=== PATIENT | female | born 1940 | race Caucasian/White ===

== ENCOUNTER → 2021-02-09 11:00 | Outpatient (CLI) | payer MEDICARE, OTHER, SELFPAY ==
[2021-02-09 19:18] LABS: Add Manual Diff / Slide Review NO; Basophils Absolute Auto 0 /uL (0-100); Basophils Percent Auto 0.7 % (0-2); Eosinophils Absolute Auto 100 /uL (0-450); Eosinophils Percent Auto 1.9 % (2-4); Hematocrit 34.6 % (36-46); Hemoglobin 11.7 g/dL (12.0-16.0); Lymphocytes Absolute Auto 1300 /uL (1100-4500); Mean Corpuscular HGB Conc 33.6 % (30-36); Mean Corpuscular Hemoglobin 34.6 PG (26-34); Mean Corpuscular Volume 102.7 fL (80-100); Monocytes Absolute Auto 400 /uL (0-900); Monocytes Percent Auto 8.9 % (3-14); Neutrophils Absolute Auto 2600 /uL (1500-7000); Neutrophils Percent Auto 58.5 % (50-75); Platelet Count 212 X10^3/uL (150-400); Red Blood Cell Count 3.37 X10^6/uL (4.0-5.2); Red Cell Distribution Width 12.7 % (11.6-14.8); White Blood Cell Count 4.4 X10^3/uL (4.5-11.0)
[2021-02-09 19:21] LABS: Alanine Aminotransferase 18 IU/L (<35); Albumin 3.8 g/dL (3.5-5.0); Albumin Globulin Ratio 1.1 (1.0-2.8); Alkaline Phosphatase 68 U/L (38-126); Aspartate Aminotransferase 28 IU/L (14-36); BUN Creatinine Ratio 29.9 (6-22); Bilirubin Total 0.3 mg/dL (0.2-1.3); Blood Urea Nitrogen 23 mg/dL (7-17); Calcium 10.1 mg/dL (8.4-10.2); Carbon Dioxide 29 mmol/L (22-32); Chloride 104 mmol/L (98-107); Estimated Glomerular Filt Rate > 60.0 mL/min (>60); Globulin 3.5 g/dL (1.7-4.1); Glucose 92 mg/dL (80-110); HEMOLYSIS < 15 (0-50); Lactate Dehydrogenase 356 U/L (313-618); Potassium 4.7 mmol/L (3.4-5.1); Sodium 139 mmol/L (137-145); Total Protein 7.3 g/dL (6.3-8.2)
[2021-02-11 15:08] LABS: Free Kappa Lt Chains, Serum 48.1 mg/L (3.3-19.4); Free Lambda Lt Chains,Serum 10.7 mg/L (5.7-26.3)
[2021-02-12 11:36] LABS: Beta-2-Microglobulin 2.2 mg/L (0.6-2.4)
[2021-02-12 16:12] LABS: Albumin 3.6 g/dL (2.9-4.4); Alpha-1-Globulin 0.2 g/dL (0.0-0.4); Alpha-2-Globulin 0.7 g/dL (0.4-1.0); Gamma Globulin 1.9 g/dL (0.4-1.8); Globulin Total 3.6 g/dL (2.2-3.9); Immunoglobulin A, Serum 71 mg/dL (64-422); Immunoglobulin G,Serum 570 mg/dL (586-1602); Immunoglobulin M, Serum 2319 mg/dL (26-217); Protein, Total 7.2 g/dL (6.0-8.5)
== END ==
PROVIDERS: PCP Physician Assistant; Visit Provider Internal Medicine Hematology & Oncology
DX: C83.00 Small cell B-cell lymphoma, unspecified site (principal); R70.0 Elevated erythrocyte sedimentation rate; C88.0 Waldenstrom macroglobulinemia
CPT/HCPCS: 80053; 82232; 82784; 83615; 83883; 84155; 84165; 85025; 86334

== ENCOUNTER → 2021-04-21 10:37 | Outpatient (CLI) | payer MEDICARE, OTHER, SELFPAY | PROVIDERS: PCP Physician Assistant; Visit Provider Physician Assistant | DX: R30.0 Dysuria (principal) | CPT/HCPCS: 87077; 87086; 87186 ==

== ENCOUNTER → 2021-05-26 13:36 | Outpatient (CLI) | payer MEDICARE, OTHER, SELFPAY ==
[2021-05-26 18:44] LABS: Add Manual Diff / Slide Review NO; Basophils Absolute Auto 0 /uL (0-100); Basophils Percent Auto 0.4 % (0-2); Eosinophils Absolute Auto 100 /uL (0-450); Eosinophils Percent Auto 2.8 % (2-4); Hematocrit 33.3 % (36-46); Hemoglobin 11.5 g/dL (12.0-16.0); Lymphocytes Absolute Auto 1500 /uL (1100-4500); Lymphocytes Percent Auto 34.1 % (25-40); Mean Corpuscular HGB Conc 34.6 % (30-36); Monocytes Absolute Auto 400 /uL (0-900); Monocytes Percent Auto 9.5 % (3-14); Neutrophils Absolute Auto 2400 /uL (1500-7000); Neutrophils Percent Auto 53.2 % (50-75); Platelet Count 210 X10^3/uL (150-400); Red Blood Cell Count 3.29 X10^6/uL (4.0-5.2); Red Cell Distribution Width 12.4 % (11.6-14.8); White Blood Cell Count 4.5 X10^3/uL (4.5-11.0)
[2021-05-26 18:51] LABS: Alanine Aminotransferase 17 IU/L (<35); Albumin 3.9 g/dL (3.5-5.0); Albumin Globulin Ratio 1.1 (1.0-2.8); Alkaline Phosphatase 66 U/L (38-126); Aspartate Aminotransferase 27 IU/L (14-36); BUN Creatinine Ratio 32.1 (6-22); Bilirubin Total 0.3 mg/dL (0.2-1.3); Blood Urea Nitrogen 26 mg/dL (7-17); Carbon Dioxide 27 mmol/L (22-32); Chloride 104 mmol/L (98-107); Estimated Glomerular Filt Rate > 60.0 mL/min (>60); Globulin 3.4 g/dL (1.7-4.1); Glucose 126 mg/dL (80-110); HEMOLYSIS < 15 (0-50); Lactate Dehydrogenase 352 U/L (313-618); Potassium 4.7 mmol/L (3.4-5.1); Sodium 139 mmol/L (137-145); Total Protein 7.3 g/dL (6.3-8.2)
[2021-05-27 14:16] LABS: Free Kappa Lt Chains, Serum 41.2 mg/L (3.3-19.4); Free Lambda Lt Chains,Serum 12.8 mg/L (5.7-26.3)
[2021-05-28 11:45] LABS: Albumin 3.5 g/dL (2.9-4.4); Alpha-1-Globulin 0.3 g/dL (0.0-0.4); Alpha-2-Globulin 0.8 g/dL (0.4-1.0); Gamma Globulin 1.9 g/dL (0.4-1.8); Globulin Total 3.9 g/dL (2.2-3.9); Immunoglobulin A, Serum 72 mg/dL (64-422); Immunoglobulin G,Serum 553 mg/dL (586-1602); Immunoglobulin M, Serum 2207 mg/dL (26-217); Protein, Total 7.4 g/dL (6.0-8.5)
[2021-05-28 16:16] LABS: Beta-2-Microglobulin 1.9 mg/L (0.6-2.4)
== END ==
PROVIDERS: PCP Physician Assistant; Referring Provider Internal Medicine Hematology & Oncology; Visit Provider Internal Medicine Hematology & Oncology
DX: C83.00 Small cell B-cell lymphoma, unspecified site (principal)
CPT/HCPCS: 80053; 82232; 82784; 83615; 83883; 84155; 84165; 85025; 86334

== ENCOUNTER → 2021-07-01 11:29 | Outpatient (CLI) | payer MEDICARE, OTHER, SELFPAY | PROVIDERS: PCP Physician Assistant; Referring Provider Nurse Practitioner Family; Visit Provider Nurse Practitioner Family | DX: N89.8 Other specified noninflammatory disorders of vagina (principal); N39.0 Urinary tract infection, site not specified | CPT/HCPCS: 87077; 87086; 87186; 87210 ==

== ENCOUNTER → 2021-07-06 10:23 | Outpatient (CLI) | payer MEDICARE, OTHER, SELFPAY ==
[2021-07-06 19:57] LABS: Alanine Aminotransferase 19 IU/L (<35); Albumin 3.9 g/dL (3.5-5.0); Albumin Globulin Ratio 1.1 (1.0-2.8); Alkaline Phosphatase 69 U/L (38-126); Aspartate Aminotransferase 28 IU/L (14-36); BUN Creatinine Ratio 32.2 (6-22); Bilirubin Total 0.3 mg/dL (0.2-1.3); Blood Urea Nitrogen 28 mg/dL (7-17); Calcium 10.4 mg/dL (8.4-10.2); Carbon Dioxide 31 mmol/L (22-32); Chloride 102 mmol/L (98-107); Estimated Glomerular Filt Rate > 60.0 mL/min (>60); Globulin 3.5 g/dL (1.7-4.1); Glucose 102 mg/dL (80-110); HEMOLYSIS < 15 (0-50); Potassium 4.7 mmol/L (3.4-5.1); Sodium 138 mmol/L (137-145); Total Protein 7.4 g/dL (6.3-8.2)
== END ==
PROVIDERS: PCP Physician Assistant; Visit Provider Physician Assistant
DX: T50.905A Adverse effect of unspecified drugs, medicaments and biological substances, initial encounter (principal); L29.8 Other pruritus; Z79.899 Other long term (current) drug therapy; N89.8 Other specified noninflammatory disorders of vagina
CPT/HCPCS: 80053; 87801

== ENCOUNTER → 2021-11-19 13:45 | Outpatient (CLI) | payer MEDICARE, OTHER, SELFPAY ==
[2021-11-19 19:59] LABS: Add Manual Diff / Slide Review NO; Basophils Absolute Auto 0 /uL (0-100); Basophils Percent Auto 0.4 % (0-2); Eosinophils Absolute Auto 100 /uL (0-450); Eosinophils Percent Auto 3.4 % (2-4); Hematocrit 34.2 % (36-46); Lymphocytes Absolute Auto 1400 /uL (1100-4500); Lymphocytes Percent Auto 30.9 % (25-40); Mean Corpuscular HGB Conc 35.1 % (30-36); Mean Corpuscular Hemoglobin 35.6 PG (26-34); Mean Corpuscular Volume 101.2 fL (80-100); Monocytes Absolute Auto 300 /uL (0-900); Monocytes Percent Auto 7.4 % (3-14); Neutrophils Absolute Auto 2600 /uL (1500-7000); Neutrophils Percent Auto 57.9 % (50-75); Platelet Count 216 X10^3/uL (150-400); Red Blood Cell Count 3.38 X10^6/uL (4.0-5.2); Red Cell Distribution Width 12.3 % (11.6-14.8); White Blood Cell Count 4.4 X10^3/uL (4.5-11.0)
[2021-11-19 20:00] LABS: Alanine Aminotransferase 18 IU/L (<35); Albumin 3.9 g/dL (3.5-5.0); Albumin Globulin Ratio 1.1 (1.0-2.8); Alkaline Phosphatase 75 U/L (38-126); Aspartate Aminotransferase 29 IU/L (14-36); BUN Creatinine Ratio 30.4 (6-22); Bilirubin Total 0.4 mg/dL (0.2-1.3); Blood Urea Nitrogen 28 mg/dL (7-17); Calcium 9.5 mg/dL (8.4-10.2); Carbon Dioxide 28 mmol/L (22-32); Chloride 103 mmol/L (98-107); Estimated Glomerular Filt Rate > 60 mL/min (>60); Globulin 3.5 g/dL (1.7-4.1); Glucose 154 mg/dL (80-110); HEMOLYSIS < 15 (0-50); Potassium 4.4 mmol/L (3.4-5.1); Sodium 139 mmol/L (137-145); Total Protein 7.4 g/dL (6.3-8.2)
[2021-11-19 20:08] LABS: Lactate Dehydrogenase 369 U/L (313-618)
[2021-11-21 14:43] LABS: Free Kappa Lt Chains, Serum 45.1 mg/L (3.3-19.4); Free Lambda Lt Chains,Serum 11.2 mg/L (5.7-26.3)
[2021-11-25 13:24] LABS: Albumin 3.4 g/dL (2.9-4.4); Alpha-1-Globulin 0.3 g/dL (0.0-0.4); Alpha-2-Globulin 0.8 g/dL (0.4-1.0); Gamma Globulin 1.8 g/dL (0.4-1.8); Globulin Total 3.7 g/dL (2.2-3.9); Immunoglobulin A, Serum 71 mg/dL (64-422); Immunoglobulin G,Serum 544 mg/dL (586-1602); Immunoglobulin M, Serum 2416 mg/dL (26-217); Protein, Total 7.1 g/dL (6.0-8.5)
[2021-11-26 05:02] LABS: Beta-2-Microglobulin 2.3 mg/L (0.6-2.4)
== END ==
PROVIDERS: PCP Physician Assistant; Visit Provider Internal Medicine Hematology & Oncology
DX: R70.0 Elevated erythrocyte sedimentation rate (principal); C83.00 Small cell B-cell lymphoma, unspecified site; D47.2 Monoclonal gammopathy
CPT/HCPCS: 80053; 82232; 82784; 83615; 83883; 84155; 84165; 85025; 86334

== ENCOUNTER → 2022-09-21 11:34 | Outpatient (CLI) | payer MEDICARE, OTHER, SELFPAY ==
[2022-09-21 19:30] LABS: Add Manual Diff / Slide Review NO; Basophils Absolute Auto 0 /uL (0-100); Basophils Percent Auto 0.5 % (0-2); Eosinophils Absolute Auto 100 /uL (0-450); Eosinophils Percent Auto 2.2 % (2-4); Hematocrit 33.8 % (36-46); Hemoglobin 11.7 g/dL (12.0-16.0); Lymphocytes Absolute Auto 1400 /uL (1100-4500); Lymphocytes Percent Auto 27.7 % (25-40); Mean Corpuscular HGB Conc 34.5 % (30-36); Mean Corpuscular Volume 101.3 fL (80-100); Monocytes Absolute Auto 400 /uL (0-900); Monocytes Percent Auto 8.5 % (3-14); Neutrophils Absolute Auto 3100 /uL (1500-7000); Neutrophils Percent Auto 61.1 % (50-75); Platelet Count 213 X10^3/uL (150-400); Red Blood Cell Count 3.34 X10^6/uL (4.0-5.2); Red Cell Distribution Width 12.8 % (11.6-14.8)
[2022-09-21 19:50] LABS: Alanine Aminotransferase 22 IU/L (<35); Albumin 3.8 g/dL (3.5-5.0); Alkaline Phosphatase 80 U/L (38-126); Aspartate Aminotransferase 28 IU/L (14-36); Bilirubin Total 0.4 mg/dL (0.2-1.3); Blood Urea Nitrogen 30 mg/dL (7-17); Carbon Dioxide 34 mmol/L (22-32); Chloride 99 mmol/L (98-107); Estimated Glomerular Filt Rate 57 mL/min (>60); Globulin 3.8 g/dL (1.7-4.1); Glucose 94 mg/dL (80-110); HEMOLYSIS < 15 (0-50); Potassium 4.8 mmol/L (3.4-5.1); Sodium 139 mmol/L (137-145); Total Protein 7.6 g/dL (6.3-8.2)
[2022-09-21 19:51] LABS: NT-proBNP (BNP-Adult 18+) 202 pg/mL (<450)
== END ==
PROVIDERS: PCP Physician Assistant; Visit Provider Physician Assistant
DX: R05.3 Chronic cough (principal); R06.2 Wheezing; R05.9 Cough, unspecified; R60.0 Localized edema
CPT/HCPCS: 80053; 83880; 85025

== ENCOUNTER → 2022-09-28 14:03 | Outpatient (CLI) | payer MEDICARE, OTHER, SELFPAY ==
[2022-09-28 19:39] LABS: Add Manual Diff / Slide Review NO; Basophils Absolute Auto 0 /uL (0-100); Basophils Percent Auto 0.4 % (0-2); Eosinophils Absolute Auto 100 /uL (0-450); Eosinophils Percent Auto 2.5 % (2-4); Hematocrit 34.1 % (36-46); Hemoglobin 11.6 g/dL (12.0-16.0); Lymphocytes Absolute Auto 1600 /uL (1100-4500); Lymphocytes Percent Auto 34.6 % (25-40); Mean Corpuscular HGB Conc 34.2 % (30-36); Mean Corpuscular Hemoglobin 35.1 PG (26-34); Mean Corpuscular Volume 102.6 fL (80-100); Monocytes Absolute Auto 400 /uL (0-900); Monocytes Percent Auto 9.3 % (3-14); Neutrophils Absolute Auto 2500 /uL (1500-7000); Neutrophils Percent Auto 53.2 % (50-75); Platelet Count 220 X10^3/uL (150-400); Red Blood Cell Count 3.32 X10^6/uL (4.0-5.2); Red Cell Distribution Width 12.9 % (11.6-14.8); White Blood Cell Count 4.8 X10^3/uL (4.5-11.0)
[2022-09-28 20:04] LABS: Alanine Aminotransferase 20 IU/L (<35); Albumin 3.8 g/dL (3.5-5.0); Alkaline Phosphatase 77 U/L (38-126); Aspartate Aminotransferase 27 IU/L (14-36); BUN Creatinine Ratio 24.6 (6-22); Bilirubin Total 0.2 mg/dL (0.2-1.3); Blood Urea Nitrogen 28 mg/dL (7-17); Calcium 9.9 mg/dL (8.4-10.2); Carbon Dioxide 31 mmol/L (22-32); Chloride 101 mmol/L (98-107); Estimated Glomerular Filt Rate 48 mL/min (>60); Globulin 3.8 g/dL (1.7-4.1); Glucose 94 mg/dL (80-110); HEMOLYSIS < 15 (0-50); Lactate Dehydrogenase 154 U/L (120-246); Potassium 4.8 mmol/L (3.4-5.1); Sodium 140 mmol/L (137-145); Total Protein 7.6 g/dL (6.3-8.2)
[2022-10-01 14:36] LABS: Free Kappa Lt Chains, Serum 64.5 mg/L (3.3-19.4)
[2022-10-02 12:28] LABS: Beta-2-Microglobulin 2.3 mg/L (0.6-2.4)
[2022-10-04 14:07] LABS: Albumin 3.4 g/dL (2.9-4.4); Alpha-1-Globulin 0.2 g/dL (0.0-0.4); Alpha-2-Globulin 0.8 g/dL (0.4-1.0); Gamma Globulin 2.1 g/dL (0.4-1.8); Protein, Total 7.4 g/dL (6.0-8.5)
== END ==
PROVIDERS: PCP Physician Assistant; Visit Provider Internal Medicine Hematology & Oncology
DX: C83.00 Small cell B-cell lymphoma, unspecified site (principal); D47.2 Monoclonal gammopathy
CPT/HCPCS: 80053; 82232; 83615; 83883; 84155; 84165; 85025

== ENCOUNTER → 2022-09-30 14:59 | Outpatient (CLI) | payer MEDICARE, OTHER, SELFPAY | PROVIDERS: PCP Physician Assistant; Visit Provider Family Medicine | DX: N23 Unspecified renal colic (principal) | CPT/HCPCS: 87077; 87086; 87186 ==

== ENCOUNTER → 2022-10-06 11:13 | Outpatient (CLI) | payer MEDICARE, OTHER, SELFPAY ==
--- NOTE | 2022-10-06 11:15 | DI.CT.S_ITS ---
PROCEDURE: CT CHEST W CON INDICATIONS: worsening cough x 1 year. abn CXR TECHNIQUE: After the administration of intravenous contrast, 5 mm thick sections acquired from the pulmonary apices to the posterior costophrenic angles. 1 mm axial lung, 5 mm thick coronal and sagittal reformats and 7 mm axial MIP were acquired. For radiation dose reduction, the following was used: automated exposure control, adjustment of mA and/or kV according to patient size. COMPARISON: None. FINDINGS: Image quality: Excellent. Lungs and pleura: Upper lobe predominant tree-in-bud nodules with associated bronchiectasis. Atelectasis and bronchiectasis in the lingula. Mediastinum: Heart size is enlarged. No pericardial effusion. No mediastinal or hilar adenopathy by size criteria. Thoracic aorta and central pulmonary arteries are normal in size. Esophagus is normal in caliber. No hiatal hernia. Trace pericardial effusions. Borderline dilation of the pulmonary artery. Bones and chest wall: No suspicious bony lesions. No vertebral body compression fractures. No axillary or supraclavicular adenopathy by size criteria. Thyroid gland is unremarkable . Abdomen: Visualized upper abdominal solid organs appear normal. Upper abdominal bowel loops are normal in caliber. IMPRESSION: Upper lobe predominant tree-in-bud nodules with associated bronchiectasis, and atelectasis and bronchiectasis in the lingula. 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 Consider 12 month follow-up for re-evaluation of small pulmonary nodules. Borderline dilation of the main pulmonary artery, which may suggest pulmonary hypertension. Dictated by: Mark Foster M.D. on 10/06/2022 at 13:30 Approved by: Mark Foster M.D. on 10/06/2022 at 13:35
== END ==
PROVIDERS: PCP Physician Assistant; Referring Provider Physician Assistant; Visit Provider Physician Assistant
DX: J98.11 Atelectasis (principal); R91.8 Other nonspecific abnormal finding of lung field; J47.9 Bronchiectasis, uncomplicated; C83.00 Small cell B-cell lymphoma, unspecified site; R05.9 Cough, unspecified; R06.00 Dyspnea, unspecified; R93.89 Abnormal findings on diagnostic imaging of other specified body structures
CPT/HCPCS: 71260; Q9967

== ENCOUNTER → 2022-10-08 10:03 | Outpatient (CLI) | payer MEDICARE, OTHER, SELFPAY | PROVIDERS: PCP Physician Assistant; Visit Provider Family Medicine | DX: N39.0 Urinary tract infection, site not specified (principal); Z88.9 Allergy status to unspecified drugs, medicaments and biological substances | CPT/HCPCS: 87077; 87086; 87186 ==

== ENCOUNTER → 2022-10-14 08:54 | Outpatient (CLI) | payer MEDICARE, OTHER, SELFPAY | PROVIDERS: PCP Physician Assistant; Visit Provider Physician Assistant Medical | DX: N39.0 Urinary tract infection, site not specified (principal) | CPT/HCPCS: 87077; 87086; 87186 ==

== ENCOUNTER → 2022-10-25 13:54 | Outpatient (CLI) | payer MEDICARE, OTHER, SELFPAY ==
[2022-10-28 15:51] LABS: Immunoglobulin A, Serum 71 mg/dL (64-422); Immunoglobulin G,Serum 529 mg/dL (586-1602); Immunoglobulin M, Serum 2623 mg/dL (26-217)
== END ==
PROVIDERS: PCP Physician Assistant; Visit Provider Internal Medicine Hematology & Oncology
DX: C83.00 Small cell B-cell lymphoma, unspecified site (principal); D47.2 Monoclonal gammopathy
CPT/HCPCS: 82784; 84155; 86334

== ENCOUNTER → 2022-11-25 09:10 | Outpatient (CLI) | payer MEDICARE, OTHER, SELFPAY ==
--- NOTE | 2022-12-01 11:39 | PM.PFT.1 ---
Pulmonary Function Test Referral & Results Date Patient Seen: 11/25/22 Results: The spirometry demonstrates an FVC of 2.25 L which is 62% of predicted. The FEV1 was measured at 1.61 L which is 59% of predicted. The FEV1/FVC ratio was 72 which is 98% of predicted. Following the administration of bronchodilator there was a 12% improvement in FEV1 and a 59% improvement in FEF 25-75%. Lung volumes show an SVC of 2.49 L which is 72% of predicted. The diffusing capacity was measured at 16.22 which is 46% of predicted. No hemoglobin value was provided, so no correction for potential anemia could be made, if appropriate. The maximum voluntary ventilation was reduced Interpretation: This study demonstrates moderate obstructive lung disease based on reduction FEV1 although FEV1/FVC ratio is preserved there is evidence of benefit following bronchodilator administration particularly small airway flow as noted above There is a [id number]-[id number] reduction in lung volumes suggesting the presence of myso-qn-[id number] restrictive lung disease which may explain some of the abnormality in the FEV1 above There is a moderate to moderately severe reduction diffusing capacity suggesting the presence of disease at the capillary alveolar level Clinical correlation suggested
== END ==
PROVIDERS: PCP Physician Assistant; Referring Provider Specialist; Visit Provider Specialist
DX: R05.3 Chronic cough (principal); J98.8 Other specified respiratory disorders
CPT/HCPCS: 94060; 94726; 94729

== ENCOUNTER → 2023-02-09 10:16 | Outpatient (CLI) | payer MEDICARE, OTHER, SELFPAY | PROVIDERS: PCP Physician Assistant; Visit Provider Family Medicine | DX: N39.0 Urinary tract infection, site not specified (principal) | CPT/HCPCS: 87077; 87086; 87186 ==

== ENCOUNTER → 2023-03-01 12:41 | Outpatient (CLI) | payer MEDICARE, OTHER, SELFPAY | PROVIDERS: PCP Physician Assistant; Visit Provider Nurse Practitioner Adult Health | DX: N39.0 Urinary tract infection, site not specified (principal); L29.3 Anogenital pruritus, unspecified; R35.0 Frequency of micturition; R39.89 Other symptoms and signs involving the genitourinary system | CPT/HCPCS: 87077; 87086; 87186 ==

== ENCOUNTER → 2023-05-23 14:11 | Outpatient (CLI) | payer MEDICARE, OTHER, SELFPAY | PROVIDERS: PCP Physician Assistant; Visit Provider Physician Assistant | DX: N39.0 Urinary tract infection, site not specified (principal) | CPT/HCPCS: 87077; 87086; 87186 ==

== ENCOUNTER → 2023-06-07 14:22 | Outpatient (CLI) | payer MEDICARE, OTHER, SELFPAY | PROVIDERS: PCP Physician Assistant; Visit Provider Physician Assistant | DX: N39.0 Urinary tract infection, site not specified (principal) | CPT/HCPCS: 87077; 87086; 87186 ==

== ENCOUNTER → 2023-06-14 15:14 | Outpatient (CLI) | payer MEDICARE, OTHER, SELFPAY ==
[2023-06-14 20:15] LABS: Appearance Urine UA SL CLOUDY; Bilirubin Urine UA NEGATIVE (NEGATIVE); Color Urine UA YELLOW; Glucose Urine UA NEGATIVE (Negative); Ketones Urine UA TRACE (NEGATIVE); Leukocyte Esterase Urine UA 2+ (NEGATIVE); Nitrite Urine UA NEGATIVE (Negative); Occult Blood Urine UA 2+ (Negative); Protein Urine UA 1+ (Negative); Specific Gravity Urine UA 1.025 (1.000-1.035); Urobilinogen Urine UA 0.2 E.U./dL (0.2)
[2023-06-14 20:20] LABS: pH Urine UA 5.5 (4.5-8.0)
[2023-06-14 20:25] LABS: Bacteria Urine Occasional (0-1); Mucus Urine 2+ (Negative); RBC Urine 1-5/HPF (0-5/HPF); Squamous Epithelial Cell Urine 5-10 /HPF (0-5/HPF); WBC Urine 30-100/HPF (0-5/HPF)
[2023-06-14 20:26] LABS: Culture Indicated Urine Specimen Cultured
== END ==
PROVIDERS: PCP Physician Assistant; Visit Provider Physician Assistant
DX: N39.0 Urinary tract infection, site not specified (principal)
CPT/HCPCS: 81001; 87086

== ENCOUNTER → 2023-06-21 12:10 | Outpatient (CLI) | payer MEDICARE, OTHER, SELFPAY ==
[2023-06-21 19:38] LABS: Appearance Urine UA CLOUDY; Bilirubin Urine UA NEGATIVE (NEGATIVE); Color Urine UA YELLOW; Glucose Urine UA NEGATIVE (Negative); Ketones Urine UA NEGATIVE (NEGATIVE); Leukocyte Esterase Urine UA 2+ (NEGATIVE); Nitrite Urine UA NEGATIVE (Negative); Occult Blood Urine UA 1+ (Negative); Protein Urine UA TRACE (Negative); Specific Gravity Urine UA 1.015 (1.000-1.035); Urobilinogen Urine UA 0.2 E.U./dL (0.2)
[2023-06-21 19:47] LABS: Bacteria Urine Few (2-10); Culture Indicated Urine Specimen Cultured; Hyaline Casts Urine 0-1/LPF; RBC Urine 1-5/HPF (0-5/HPF); Squamous Epithelial Cell Urine 1-5 /HPF (0-5/HPF); WBC Urine 30-100/HPF (0-5/HPF)
== END ==
PROVIDERS: PCP Physician Assistant; Visit Provider Physician Assistant
DX: N39.0 Urinary tract infection, site not specified (principal); R30.0 Dysuria
CPT/HCPCS: 81001; 87086

== ENCOUNTER → 2023-08-19 10:52 | Outpatient (CLI) | payer MEDICARE, OTHER, SELFPAY | PROVIDERS: PCP Physician Assistant; Visit Provider Urology | DX: N39.0 Urinary tract infection, site not specified (principal) | CPT/HCPCS: 87086 ==

== ENCOUNTER → 2023-08-19 11:23 | Outpatient (CLI) | payer MEDICARE, OTHER, SELFPAY ==
[2023-08-19 12:53] LABS: BUN Creatinine Ratio 35.6 (6-22); Blood Urea Nitrogen 31 mg/dL (7-17); Calcium 10.7 mg/dL (8.4-10.2); Carbon Dioxide 27 mmol/L (22-32); Chloride 100 mmol/L (98-107); Estimated Glomerular Filt Rate > 60 mL/min (>60); Glucose 116 mg/dL (80-110); HEMOLYSIS < 15 (0-50); Potassium 4.8 mmol/L (3.4-5.1); Sodium 138 mmol/L (137-145)
== END ==
PROVIDERS: PCP Physician Assistant; Referring Provider Urology; Visit Provider Urology
DX: N39.0 Urinary tract infection, site not specified (principal); R31.9 Hematuria, unspecified
CPT/HCPCS: 36415; 80048; 81002; 87077; 87086; 87147; 87186; 99214

== ENCOUNTER → 2023-08-31 12:16 | Outpatient (CLI) | payer MEDICARE, OTHER, SELFPAY ==
--- NOTE | 2023-08-31 12:17 | DI.CT.S_ITS ---
PROCEDURE: CT IVP A/P W/WO INDICATIONS: Frequent urinary tract infection/hematuria TECHNIQUE: Optional 5 mm thick noncontrast images acquired from the diaphragm to the symphysis pubis. After the administration of intravenous contrast, 5 mm thick images acquired from the diaphragm to the symphysis pubis after a 10-minute delay. 2 mm thick coronal and sagittal reformats were then performed of the kidneys and ureters. For radiation dose reduction, the following was used: automated exposure control, adjustment of mA and/or kV according to patient size. COMPARISON: [facility], CT, ABDOMEN/PELVIS WITH CONTRAST, 08/07/2013, 10:16. FINDINGS: Image quality: Diagnostic. Kidneys and Ureters: Both kidneys are normal in size, without hydronephrosis or nephrolithiasis. No perinephric fat stranding. There is normal bilateral renal enhancement. Renal calyces appear normal in morphology when filled with contrast. Opacified portions of both ureters demonstrate normal caliber Bladder: Bladder wall thickness is normal. No calcified bladder stones. OTHER: Lower chest: Unremarkable. Liver: No solid mass. Linear posterior segment right lobe liver benign calcifications, possibly posttraumatic. Gallbladder: No radiopaque gallstones or wall thickening. Biliary ducts: No biliary dilation. Pancreas: No ductal dilation. Spleen: Size is within normal limits. Adrenal Glands: No adrenal nodules. Stomach and Bowel: Small hiatal hernia. Normal colonic caliber, without significant wall thickening. Posterior pelvic floor relaxation with inferior location of rectoanal junction. Diverticulosis without evidence of diverticulitis. Peritoneum: No abnormal intraperitoneal fluid. No free air. Ventral Wall: No hernia. Abdominal Nodes: No retroperitoneal or mesenteric adenopathy by size criteria. Vessels: Aorta and inferior vena cava are normal in size. PELVIS: Pelvic Organs: Uterus is present. There is a degree of posterior pelvic floor relaxation with caudad location of the rectoanal junction below the expected location of the pelvic floor.. Pelvic Nodes: No enlarged lymph nodes. Miscellaneous: No inguinal hernias are seen. Bones: No aggressive osseous abnormality. IMPRESSION: 1. No renal stone, ureteral stone, hydronephrosis, or findings suspicious for malignancy. 2. Posterior pelvic floor relaxation. 3. Diverticulosis without evidence of diverticulitis. 4. Small hiatal hernia. Dictated by: Tahir Valle M.D. on 08/31/2023 at 21:17 Approved by: Tahir Valle M.D. on 08/31/2023 at 21:23
== END ==
LOC: CT 12:17
PROVIDERS: PCP Physician Assistant; Referring Provider Urology; Visit Provider Urology
DX: N39.0 Urinary tract infection, site not specified (principal); N81.89 Other female genital prolapse; K57.90 Diverticulosis of intestine, part unspecified, without perforation or abscess without bleeding; K44.9 Diaphragmatic hernia without obstruction or gangrene; R31.9 Hematuria, unspecified
CPT/HCPCS: 74178; Q9967

== ENCOUNTER → 2023-09-09 11:06 | Outpatient (CLI) | payer MEDICARE, OTHER, SELFPAY | PROVIDERS: PCP Physician Assistant; Visit Provider Urology | DX: N39.0 Urinary tract infection, site not specified (principal); N95.2 Postmenopausal atrophic vaginitis | CPT/HCPCS: 51798; 52000; 81002; 87086 ==

== ENCOUNTER → 2023-10-31 12:06 | Outpatient (CLI) | payer MEDICARE, OTHER, SELFPAY | PROVIDERS: PCP Physician Assistant; Visit Provider Family Medicine | DX: R39.89 Other symptoms and signs involving the genitourinary system (principal) | CPT/HCPCS: 87086 ==

== ENCOUNTER → 2024-01-26 11:31 | Outpatient (CLI) | payer MEDICARE, OTHER, SELFPAY | PROVIDERS: PCP Physician Assistant; Visit Provider Family Medicine | DX: R30.0 Dysuria (principal) | CPT/HCPCS: 87077; 87086; 87186 ==

== ENCOUNTER → 2024-02-21 10:41 | Outpatient (CLI) | payer MEDICARE, OTHER, SELFPAY | PROVIDERS: PCP Physician Assistant; Visit Provider Family Medicine | DX: R39.89 Other symptoms and signs involving the genitourinary system (principal) | CPT/HCPCS: 87077; 87086 ==

== ENCOUNTER → 2024-03-14 11:05 | Outpatient (CLI) | payer MEDICARE, OTHER, SELFPAY ==
[2024-03-14 19:07] LABS: Add Manual Diff / Slide Review NO; Basophils Absolute Auto 0 /uL (0-100); Basophils Percent Auto 0.5 % (0-2); Eosinophils Absolute Auto 100 /uL (0-450); Eosinophils Percent Auto 2.1 % (2-4); Hematocrit 34.4 % (36-46); Hemoglobin 11.8 g/dL (12.0-16.0); Lymphocytes Absolute Auto 1400 /uL (1100-4500); Lymphocytes Percent Auto 27.6 % (25-40); Mean Corpuscular HGB Conc 34.4 % (30-36); Mean Corpuscular Hemoglobin 35.6 PG (26-34); Mean Corpuscular Volume 103.5 fL (80-100); Monocytes Absolute Auto 400 /uL (0-900); Neutrophils Absolute Auto 3000 /uL (1500-7000); Neutrophils Percent Auto 60.8 % (50-75); Platelet Count 205 X10^3/uL (150-400); Red Blood Cell Count 3.33 X10^6/uL (4.0-5.2); Red Cell Distribution Width 12.8 % (11.6-14.8); White Blood Cell Count 4.9 X10^3/uL (4.5-11.0)
[2024-03-14 19:12] LABS: Alanine Aminotransferase 21 IU/L (<35); Albumin 4.1 g/dL (3.5-5.0); Albumin Globulin Ratio 1.1 (1.0-2.8); Alkaline Phosphatase 77 U/L (38-126); Aspartate Aminotransferase 30 IU/L (14-36); BUN Creatinine Ratio 23.7 (6-22); Bilirubin Total 0.4 mg/dL (0.2-1.3); Blood Urea Nitrogen 22 mg/dL (7-17); Calcium 9.8 mg/dL (8.4-10.2); Carbon Dioxide 27 mmol/L (22-32); Chloride 102 mmol/L (98-107); Estimated Glomerular Filt Rate > 60 mL/min (>60); Globulin 3.7 g/dL (1.7-4.1); Glucose 96 mg/dL (80-110); HEMOLYSIS < 15 (0-50); Lactate Dehydrogenase 160 U/L (120-246); Potassium 4.6 mmol/L (3.4-5.1); Sodium 138 mmol/L (137-145); Total Protein 7.8 g/dL (6.3-8.2)
[2024-03-16 18:07] LABS: Free Lambda Lt Chains,Serum 10.6 mg/L (5.7-26.3)
[2024-03-17 14:39] LABS: Beta-2-Microglobulin 2.1 mg/L (0.6-2.4)
[2024-03-19 13:10] LABS: Immunoglobulin A, Serum 68 mg/dL (64-422); Immunoglobulin G,Serum 560 mg/dL (586-1602); Immunoglobulin M, Serum 2690 mg/dL (26-217)
== END ==
PROVIDERS: PCP Physician Assistant; Referring Provider Internal Medicine Hematology & Oncology; Visit Provider Internal Medicine Hematology & Oncology
DX: C88.0 Waldenstrom macroglobulinemia (principal); C83.00 Small cell B-cell lymphoma, unspecified site; D47.2 Monoclonal gammopathy
CPT/HCPCS: 80053; 82232; 82784; 83615; 83883; 84155; 85025; 86334

== ENCOUNTER → 2024-04-10 10:54 | Outpatient (CLI) | payer MEDICARE, OTHER, SELFPAY | PROVIDERS: PCP Physician Assistant; Visit Provider Family Medicine | DX: N39.0 Urinary tract infection, site not specified (principal) | CPT/HCPCS: 87086 ==

== ENCOUNTER → 2024-04-16 09:39 | Outpatient (CLI) | payer MEDICARE, OTHER, SELFPAY | PROVIDERS: PCP Physician Assistant; Visit Provider Family Medicine | DX: R30.0 Dysuria (principal); R39.89 Other symptoms and signs involving the genitourinary system | CPT/HCPCS: 87077; 87086 ==

== ENCOUNTER → 2024-06-06 11:20 | Outpatient (CLI) | payer MEDICARE, OTHER, SELFPAY | PROVIDERS: PCP Physician Assistant; Visit Provider Urology | DX: N95.2 Postmenopausal atrophic vaginitis (principal); R82.998 Other abnormal findings in urine; R39.9 Unspecified symptoms and signs involving the genitourinary system; Z87.440 Personal history of urinary (tract) infections | CPT/HCPCS: 51798; 81002; 87086; 99214 ==

== ENCOUNTER → 2024-06-14 10:40 | Outpatient (CLI) | payer MEDICARE, OTHER, SELFPAY | PROVIDERS: PCP Physician Assistant; Visit Provider Urology | DX: N39.0 Urinary tract infection, site not specified (principal); Z87.440 Personal history of urinary (tract) infections | CPT/HCPCS: 87086 ==

== ENCOUNTER → 2024-07-12 11:54 | Outpatient (CLI) | payer MEDICARE, OTHER, SELFPAY ==
[2024-07-12 20:37] LABS: Appearance Urine UA CLEAR; Bilirubin Urine UA NEGATIVE (NEGATIVE); Color Urine UA YELLOW; Glucose Urine UA NEGATIVE (Negative); Ketones Urine UA TRACE (NEGATIVE); Leukocyte Esterase Urine UA 2+ (NEGATIVE); Nitrite Urine UA POSITIVE (Negative); Occult Blood Urine UA 3+ (Negative); Protein Urine UA 2+ (Negative); Specific Gravity Urine UA >=1.030 (1.000-1.035); Urobilinogen Urine UA 0.2 E.U./dL (0.2)
[2024-07-12 20:41] LABS: pH Urine UA 5.5 (4.5-8.0)
[2024-07-12 21:03] LABS: Bacteria Urine Many (>30); RBC Urine 30-100/HPF (0-5/HPF); Urine Volume 10mL (spun); WBC Urine 30-100/HPF (0-5/HPF)
[2024-07-12 21:04] LABS: Culture Indicated Urine Specimen Cultured; Squamous Epithelial Cell Urine 1-5 /HPF (0-5/HPF)
== END ==
PROVIDERS: PCP Physician Assistant; Referring Provider Urology; Visit Provider Urology
DX: N39.0 Urinary tract infection, site not specified (principal); R30.0 Dysuria; R35.1 Nocturia; R31.9 Hematuria, unspecified; R35.0 Frequency of micturition; R39.89 Other symptoms and signs involving the genitourinary system; Z87.440 Personal history of urinary (tract) infections
CPT/HCPCS: 81001; 87077; 87086; 87186

== ENCOUNTER → 2024-07-18 20:12 | Outpatient (ROUT) | payer MEDICARE, OTHER, SELFPAY | PROVIDERS: PCP Physician Assistant; Visit Provider Nurse Practitioner Adult Health | DX: N76.0 Acute vaginitis (principal); Z87.440 Personal history of urinary (tract) infections | CPT/HCPCS: 87563; 87798 ==

== ENCOUNTER → 2024-09-07 13:32 | Outpatient (CLI) | payer MEDICARE, OTHER, SELFPAY | PROVIDERS: PCP Physician Assistant; Visit Provider Family Medicine | DX: N76.1 Subacute and chronic vaginitis (principal); K59.00 Constipation, unspecified | CPT/HCPCS: 87077; 87086; 87186 ==

== ENCOUNTER → 2024-10-08 13:49 | Outpatient (CLI) | payer MEDICARE, OTHER, SELFPAY ==
[2024-10-08 18:40] LABS: Add Manual Diff / Slide Review NO; Basophils Absolute Auto 0 /uL (0-100); Basophils Percent Auto 0.2 % (0-2); Eosinophils Absolute Auto 100 /uL (0-450); Eosinophils Percent Auto 1.1 % (2-4); Hematocrit 33.7 % (36-46); Hemoglobin 11.5 g/dL (12.0-16.0); Lymphocytes Absolute Auto 1700 /uL (1100-4500); Lymphocytes Percent Auto 24.2 % (25-40); Mean Corpuscular HGB Conc 34.1 % (30-36); Mean Corpuscular Hemoglobin 35.3 PG (26-34); Mean Corpuscular Volume 103.4 fL (80-100); Monocytes Absolute Auto 500 /uL (0-900); Monocytes Percent Auto 7.7 % (3-14); Neutrophils Absolute Auto 4600 /uL (1500-7000); Neutrophils Percent Auto 66.8 % (50-75); Platelet Count 235 X10^3/uL (150-400); Red Blood Cell Count 3.25 X10^6/uL (4.0-5.2); Red Cell Distribution Width 12.9 % (11.6-14.8); White Blood Cell Count 6.9 X10^3/uL (4.5-11.0)
[2024-10-08 18:57] LABS: Alanine Aminotransferase 28 IU/L (<35); Albumin Globulin Ratio 1.1 (1.0-2.8); Alkaline Phosphatase 77 U/L (38-126); Aspartate Aminotransferase 33 IU/L (14-36); BUN Creatinine Ratio 38.5 (6-22); Bilirubin Total 0.4 mg/dL (0.2-1.3); Blood Urea Nitrogen 35 mg/dL (7-17); Calcium 9.8 mg/dL (8.4-10.2); Carbon Dioxide 29 mmol/L (22-32); Chloride 101 mmol/L (98-107); Estimated Glomerular Filt Rate > 60 mL/min (>60); Globulin 3.8 g/dL (1.7-4.1); Glucose 100 mg/dL (80-110); HEMOLYSIS < 15 (0-50); Lactate Dehydrogenase 167 U/L (120-246); Potassium 4.4 mmol/L (3.4-5.1); Sodium 138 mmol/L (137-145); Total Protein 7.8 g/dL (6.3-8.2)
== END ==
PROVIDERS: PCP Family Medicine; Visit Provider Internal Medicine Hematology & Oncology
DX: C83.00 Small cell B-cell lymphoma, unspecified site (principal); D47.2 Monoclonal gammopathy
CPT/HCPCS: 80053; 82232; 82784; 83615; 83883; 84155; 84165; 85025; 86334

== ENCOUNTER → 2024-10-13 10:31 | Outpatient (CLI) | payer MEDICARE, OTHER, SELFPAY ==
[2024-10-13 11:14] LABS: Erythrocyte Sedimentation Rate 106 MM/HR (0-20)
[2024-10-13 11:24] LABS: C-Reactive Protein Quant 2.1 mg/dL (<1.0); Creatine Kinase 67 U/L (30-135)
[2024-10-14 06:10] LABS: Myoglobin 53 ng/mL (25-58)
== END ==
LOC: LAB 10:33
PROVIDERS: PCP Family Medicine; Referring Provider Family Medicine; Visit Provider Family Medicine
DX: K68.12 Psoas muscle abscess (principal)
CPT/HCPCS: 36415; 82550; 83874; 85651; 86140

== ENCOUNTER → 2024-10-13 14:08 | Outpatient (CLI) | payer MEDICARE, OTHER, SELFPAY ==
--- NOTE | 2024-10-13 14:11 | DI.MRI.S_ITS ---
PROCEDURE: MR PELIS WO/W CON INDICATIONS: Severe pain with hip flexor, sit up TECHNIQUE: Coronal HASTE, sagittal T2 FSE, axial T1 FSE, axial and coronal nonbreath-hold T2 FSE. Axial dynamic VIBE during administration of contrast. Post-contrast axial and coronal VIBE/2-D FLASH with fat saturation from the iliac crests to the symphysis. Optional diffusion weighted imaging and ADC may be performed. COMPARISON: [facility] ([facility]), CR, XR HIP W PEL IF DONE LT 2V, 10/08/2024, 14:45. FINDINGS: Image quality: Evaluation of left hip is limited given the large field of view and whole pelvis imaging. Bowel and peritoneum: No pathologic free pelvic fluid. Inferior colon and small bowel loops are normal in caliber. Genitourinary system: Bladder wall is normal in thickness. Distal ureters are non distended. Nodes and vessels: No pathologic pelvic or inguinal adenopathy by size criteria. Iliac vessels are normal in caliber. Soft tissues: Diffuse edema along the distal iliopsoas muscle with a complete transection and retraction of the distal insertion by 4 cm. Edema signal extends into the left abductor musculature likely reactive. Bones: Marrow is normal in overall signal. IMPRESSION: High-grade tear, near complete of the left iliopsoas with 4 cm retraction from the lesser trochanter Dictated by: Alonzo Munoz M.D. on 10/13/2024 at 15:19 Approved by: Alonzo Munoz M.D. on 10/13/2024 at 15:25
== END ==
PROVIDERS: PCP Family Medicine; Referring Provider Family Medicine; Visit Provider Family Medicine
DX: K68.12 Psoas muscle abscess (principal); S39.013A Strain of muscle, fascia and tendon of pelvis, initial encounter
CPT/HCPCS: 36415; 72197; 82550; 83874; 85651; 86140; A9579

== ENCOUNTER → 2024-10-23 06:00 | Outpatient (CLI) | payer MEDICARE, OTHER, SELFPAY ==
[2024-10-23 20:05] LABS: Clostridium Difficile Tox PCR Positive for C. diff (Negative)
[2024-10-25 15:10] LABS: C difficie Toxins A and B, EIA Positive (Negative)
== END ==
PROVIDERS: PCP Family Medicine; Visit Provider Family Medicine
DX: R19.7 Diarrhea, unspecified (principal)
CPT/HCPCS: 87045; 87205; 87324; 87493

== ENCOUNTER → 2024-11-02 12:36 | Outpatient (CLI) | payer MEDICARE, OTHER, SELFPAY | PROVIDERS: PCP Family Medicine; Visit Provider Family Medicine | DX: R30.0 Dysuria (principal); N39.0 Urinary tract infection, site not specified | CPT/HCPCS: 87077; 87086; 87186 ==

== ENCOUNTER → 2024-12-31 11:28 | Outpatient (CLI) | payer MEDICARE, OTHER, SELFPAY ==
[2024-12-31 19:38] LABS: Hematocrit 34.0 % (36-46); Hemoglobin 11.7 g/dL (12.0-16.0); Mean Corpuscular HGB Conc 34.4 % (30-36); Mean Corpuscular Hemoglobin 35.2 PG (26-34); Mean Corpuscular Volume 102.2 fL (80-100); Platelet Count 183 X10^3/uL (150-400)
[2024-12-31 19:40] LABS: Add Manual Diff / Slide Review YES
[2024-12-31 19:42] LABS: HEMOLYSIS < 15 (0-50); Iron 84 ug/dL (37-170)
[2024-12-31 20:02] LABS: Basophils Percent Manual 1.0 % (0-1); Lymphocytes Percent Manual 49.0 % (25-45); Metamyelocytes Percent 1.0 % (-0); Monocytes Percent Manual 3.0 % (2-11); Neutrophils Absolute Manual 2024 /uL (3000-5900); RBC Morphology Normal Morphology; Segmented Neutrophils Percent 46.0 % (38-70); Total Cells Counted 100
[2024-12-31 20:13] LABS: Ferritin 33 ng/mL (11-264)
[2024-12-31 20:15] LABS: Percent Iron Saturation 29 % (15-50); Total Iron Binding Capacity 288 ug/dL (265-497); Transferrin 223 mg/dL (206-381)
[2024-12-31 20:58] LABS: Folate > 20.0 ng/mL (2.76-20.0); Vitamin B12 579 pg/mL (239-931)
== END ==
PROVIDERS: PCP Family Medicine; Visit Provider Family Medicine
DX: D64.9 Anemia, unspecified (principal)
CPT/HCPCS: 82607; 82728; 82746; 83540; 83550; 85007; 85025

== ENCOUNTER → 2025-04-03 14:26 | Outpatient (CLI) | payer MEDICARE, OTHER, SELFPAY ==
[2025-04-03 18:48] LABS: Hematocrit 33.1 % (36-46); Hemoglobin 11.5 g/dL (12.0-16.0); Mean Corpuscular HGB Conc 34.8 % (30-36); Mean Corpuscular Hemoglobin 35.1 PG (26-34); Mean Corpuscular Volume 101.1 fL (80-100); Platelet Count 214 X10^3/uL (150-400)
[2025-04-03 18:55] LABS: Alanine Aminotransferase 15 IU/L (<35); Albumin 4.1 g/dL (3.5-5.0); Albumin Globulin Ratio 1.0 (1.0-2.8); Alkaline Phosphatase 80 U/L (38-126); Blood Urea Nitrogen 25 mg/dL (7-17); Calcium 9.8 mg/dL (8.4-10.2); Carbon Dioxide 28 mmol/L (22-32); Chloride 100 mmol/L (98-107); Estimated Glomerular Filt Rate > 60 mL/min (>60); Globulin 4.0 g/dL (1.7-4.1); Glucose 156 mg/dL (70-99); HEMOLYSIS 17 (0-50); Potassium 4.4 mmol/L (3.4-5.1); Sodium 137 mmol/L (137-145); Total Protein 8.1 g/dL (6.3-8.2)
[2025-04-03 19:26] LABS: Eosinophils Percent Manual 6.0 % (2-4); Lymphocytes Percent Manual 29.0 % (25-45); Monocytes Percent Manual 8.0 % (2-11); Neutrophils Absolute Manual 2736 /uL (3000-5900); RBC Morphology Normal Morphology; Segmented Neutrophils Percent 57.0 % (38-70); Total Cells Counted 100
[2025-04-03 19:52] LABS: Ferritin 47 ng/mL (11-264)
[2025-04-03 19:59] LABS: Vitamin B12 Reflex MMA if <400 746 pg/mL (239-931)
[2025-04-03 20:01] LABS: Folate > 20.0 ng/mL (2.76-20.0)
== END ==
PROVIDERS: Nurse Practitioner Gerontology; PCP Family Medicine; Visit Provider Family Medicine
DX: D64.9 Anemia, unspecified (principal); R20.0 Anesthesia of skin; C83.00 Small cell B-cell lymphoma, unspecified site; D47.2 Monoclonal gammopathy
CPT/HCPCS: 80053; 82232; 82607; 82728; 82746; 82784; 83615; 83883; 84155; 84165; 85025; 86334

== ENCOUNTER → 2025-05-14 10:26 | Outpatient (CLI) | payer MEDICARE, OTHER, SELFPAY ==
--- NOTE | 2025-05-14 10:27 | DI.MG.S_ITS ---
MM diagnostic mammo unilat RT, US breast RT limited: 05/14/2025 BI-RADS: 1 CLINICAL: 85-year old female for right diagnostic mammogram and right diagnostic breast ultrasound. Tyrer-Cuzick lifetime risk of 0.2%. No personal or first-degree family history of breast cancer. PRIOR EXAMS 03/20/2025, 03/15/2024, 03/10/2023, 03/17/2022, 03/17/2021, 04/12/2016. MAMMOGRAPHY TECHNIQUE: 2D and 3D (tomosynthesis) digital mammographic views obtained, with additional images as needed for full coverage. Current study was also evaluated with a Computer Aided Detection (CAD) system. ULTRASOUND TECHNIQUE: Real-time green scale imaging of the area of clinical interest was performed with image documentation. TARGETED Right Breast Ultrasound: Real-time ultrasound exam was performed focused to area of clinical and/or imaging concern. DENSITY Right: B. There are scattered areas of fibroglandular density. MAMMOGRAPHY FINDINGS Right: Upper at 12:00, Middle depth: The focal asymmetry seen on recent screening mammogram is less conspicuous with additional imaging and is consistent with benign fibroglandular tissue. ULTRASOUND FINDINGS Right: Upper at 12:00, 8 cm from nipple: There is no sonographic abnormality to account for imaging concern on mammography. IMPRESSION: Right * No evidence of malignancy. RECOMMENDATIONS Bilateral * Annual screening mammography. COMMENTS: Findings and recommendations were conveyed to the patient during today's evaluation. OVERALL ASSESSMENT CATEGORY BI-RADS-1: Negative. The [employer] recommends annual screening mammography beginning at age 40 for women with average risk of breast cancer. ELECTRONICALLY SIGNED: Dasha Del Rio M.D. on 05/14/2025 at 12:10:07 PM PT Interpreting Station ID: [id number]
--- NOTE | 2025-05-14 10:28 | DI.US.S_ITS ---
PROCEDURE: US ABDOMEN COMPLETE INDICATIONS: abnormal mammogram TECHNIQUE: Real-time scanning was performed of the abdominal and retroperitoneal organs, with image documentation. COMPARISON: None. FINDINGS: Liver: Liver is normal in size and homogeneous in echotexture. Partially obscured by shadowing. Gallbladder: Unremarkable Biliary ducts: Intrahepatic bile ducts are non-dilated. Extrahepatic bile duct caliber measures 6 mm. Normal is 6-7 mm or less in diameter, or 10 mm or less post-cholecystectomy. Pancreas: Visualized portions of the pancreas are sonographically normal. Spleen: Spleen is normal in size and homogeneous in echotexture. Kidneys: Kidneys are normal in size and echotexture. Right kidney measures 9.6 cm long; left kidney measures 10.1 cm long. No hydronephrosis or nephrolithiasis. No solid masses. Aorta: Visualized aorta is normal in caliber at less than 3 cm. Iliacs: Proximal common iliac arteries are normal in caliber at less than 2.5 cm. IVC: Intrahepatic inferior vena cava is patent. Miscellaneous: No free abdominal fluid. IMPRESSION: Negative examination with limitations above. Dictated by: Shaq Bales M.D. on 05/14/2025 at 13:55 Approved by: Shaq Bales M.D. on 05/14/2025 at 14:00
== END ==
LOC: MAMMO 10:26
PROVIDERS: PCP Family Medicine; Referring Provider Family Medicine; Visit Provider Family Medicine
DX: C83.00 Small cell B-cell lymphoma, unspecified site (principal); R92.8 Other abnormal and inconclusive findings on diagnostic imaging of breast; D47.2 Monoclonal gammopathy
CPT/HCPCS: 76642; 76700; 77065; G0279

== ENCOUNTER → 2025-05-20 10:31 | Outpatient (CLI) | payer MEDICARE, OTHER, SELFPAY ==
--- NOTE | 2025-05-20 10:35 | DI.MRI.S_ITS ---
PROCEDURE: MR SHOULDER RT WO CON INDICATIONS: R. shoulder pain, lack of mobility, Bruising R. upper arm TECHNIQUE: Noncontrast oblique coronal T2 fast spin echo with fat saturation, oblique sagittal T1 spin echo and T2 fast spin echo with fat saturation, axial T1 spin echo and T2 fast spin echo with fat saturation through the shoulder. COMPARISON: [facility] ([place]), CR, XR SHOULDER RT 2+ VIEWS, 05/07/2025, 14:34. [facility], MR, SHOULDER WITHOUT CONTRAST, 12/08/2015, 10:30. FINDINGS: Image quality: Diagnostic. Rotator cuff: Interval full-thickness, full with, complete tear of supraspinatus and infraspinatus with retraction of the torn tendon fibers to the glenoid. Interval full-thickness, partial width, tear of the superior subscapularis. The total superior rotator cuff tear measures 8.2 cm. Severe fatty infiltration and atrophy of the supraspinatus and infraspinatus. Biceps: Interval complete tear of the long head of the biceps at the superior bicipital groove with scarring of the tendon remnant to the bicipital groove. Severe degeneration of the biceps anchor. Osseous structures and articular cartilage: No fracture, or suspicious marrow replacing process, or contusion. Complete articular cartilage loss of the inferior medial humeral head with severe, full-thickness articular cartilage loss of the inferior glenoid. Subchondral pitting in the humeral head. Enthesopathic change in the greater tuberosity. Supraspinatus outlet: Moderate degenerative arthrosis of the acromioclavicular joint with scarring of the joint capsule. Large volume fluid and synovitis in the subacromial subdeltoid bursa secondary to the complete superior rotator cuff tear. Intra-articular: Circumferential labral degeneration fraying and tearing. Moderate synovitis and debris in the axillary recess and subcoracoid recess. Possible 4 mm articular body in the subcoracoid recess (12/05). Extra-articular: Mild atrophy of the deltoid. Longitudinal, low grade 2 strain of the lateral head of the deltoid with fluid tracking along the myotendinous junction (11/05) IMPRESSION: 1. Severe rotator cuff arthropathy with full-thickness articular cartilage loss of the inferior glenohumeral joint. 2. Massive superior rotator cuff tear with chronic complete tear of supraspinatus and infraspinatus and full-thickness, partial width tear of the superior subscapularis. 3. Chronic complete tear and scarring of the long head of the biceps in the bicipital groove. 4. Moderate synovitis and debris in the axillary in subcoracoid recess with possible 4 mm articular body in the subcoracoid recess. 5. Grade 2 strain of the lateral head of the deltoid with longitudinal perforation along the bursal surface. Dictated by: Nelson Diaz M.D. on 05/20/2025 at 11:42 Approved by: Nelson Diaz M.D. on 05/20/2025 at 11:49
== END ==
LOC: MRI 10:33
PROVIDERS: PCP Family Medicine; Referring Provider Physician Assistant; Visit Provider Physician Assistant
DX: S46.111A Strain of muscle, fascia and tendon of long head of biceps, right arm, initial encounter (principal); S46.811A Strain of other muscles, fascia and tendons at shoulder and upper arm level, right arm, initial encounter; M19.011 Primary osteoarthritis, right shoulder; M75.121 Complete rotator cuff tear or rupture of right shoulder, not specified as traumatic; M75.111 Incomplete rotator cuff tear or rupture of right shoulder, not specified as traumatic; M65.911 Unspecified synovitis and tenosynovitis, right shoulder; M62.511 Muscle wasting and atrophy, not elsewhere classified, right shoulder; M25.511 Pain in right shoulder
CPT/HCPCS: 73221

== ENCOUNTER → 2025-06-04 16:52 | Outpatient (CLI) | payer MEDICARE, OTHER, SELFPAY | PROVIDERS: PCP Family Medicine; Referring Provider Physician Assistant Medical; Visit Provider Physician Assistant Medical | DX: N39.0 Urinary tract infection, site not specified (principal) | CPT/HCPCS: 87086 ==